=== PATIENT | female | born 1950 | race Caucasian/White ===

== ENCOUNTER 2016-10-04 11:33 | Emergency (ER) | payer OTHER ==
--- NOTE | 2016-10-04 13:21 | DX ---
Portable Chest, Single View 12:56 PM Indication: Chest pain Comparison: Two-view chest dated November 09, 2013 Findings: Lungs are well aerated except for minimal linear bibasilar atelectasis. No pneumothorax, ai rspace consolidation, edema or effusion. Heart size upper normal limit for portable technique. Mild d iffuse peribronchial thickening is similar to October 2013. Impression: Minimal bibasilar atelectasis and chronic airways disease.
--- NOTE | 2016-10-04 13:22 | CPEKG ---
Heart Rate: 57 RR Interval: 1053 P-R Interval: 164 QRSD Interval: 86 QT Interval: 400 QTC Interval: 390 P [place]: -3 QRS [place]: 4 T Wave [place]: 9 EKG Severity - ABNORMAL ECG - EKG Impression: SINUS RHYTHM EKG Impression: NONSPECIFIC T ABNORMALITIES, ANTERIOR LEADS Electronically Signed By: Lloyd Espinosa 04-Oct-2016 21:12:02
[2016-10-04 13:24] LABS: COLOR AMBER; LEUKOCYTE ESTERASE,URINE NEGATIVE (NEGATIVE); NITRITE,URINE NEGATIVE (NEGATIVE)
[2016-10-04 13:39] LABS: MUCUS 4+ /lpf (NONE-1+); RBC,URINE 50-182 /hpf (0-3)
--- NOTE | 2016-10-04 13:45 | EDPHY ---
H & P Time Seen by Provider: 10/04/16 13:01 HPI/ROS: HPI Pain and shortness of breath after nephrostomy tube removal. 66-year-old female who was escorted to the emergency department by her urologist. This patient has a history of a right-sided 4 mm ureteral calculi diagnosis last week. She had associated hydronephrosis. She subsequently had lithotripsy and had a nephrostomy tube placed. The nephrostomy tube was removed by her urologist, Dr. Lyman, in the office today about an hour to ago. Right after removal of the tube she had an intense pain in her right flank area and right mid abdominal area. She reports that with this pain she had associated shortness of breath. Her daughter gave her some Advil. She was then escorted to the emergency department by Dr. Lyman for ED evaluation. She reports that after taking the Advil given to her by her daughter she now feels much better. She denies any significant pain. She denies any shortness of breath. ROS: Constitutional: No fever, no chills. No weakness. Eyes: No discharge. No changes in vision. ENT: No sore throat. No nasal congestion or rhinorrhea. Respiratory: No cough. As above. Cardiac: No chest pain, no palpitations. Gastrointestinal: As above, no vomiting, no diarrhea. Genitourinary: No hematuria. No dysuria or increased frequency with urination. Musculoskeletal: As above. No neck pain. No myalgias or arthralgias. Skin: No rashes. Neurological: No headache. No focal weakness or altered sensation. Past medical history: Fibromyalgia, hypothyroid, diverticulitis, kidney stones , as above, bariatric surgery, attention deficit hyperactivity disorder,, recovering alcoholic for 32 years, history of pulmonary embolisms while on control pills when she was younger. She is not on any anticoagulation currently. Social history: Here with her daughter. Nonsmoker. As above. Physical Exam: General Appearance: Alert, no distress. This patient is responding to questions appropriately and in full sentences. This patient appears well- hydrated and well-nourished. Eyes: Pupils equal and round no pallor or injection. No lid edema, erythema or injection. Respiratory: There are no retractions, lungs are clear to auscultation with good air movement bilaterally. No tachypnea. Cardiovascular: Regular rate and rhythm. No murmur. Gastrointestinal: Abdomen is soft and nontender, no masses, bowel sounds normal. No focal tenderness at McBurney's point. No Pandey sign. Neurological: Motor sensory function is grossly intact. Cranial nerves are normal. Gait is normal. Skin: Warm and dry, no rashes. Right-sided flank insertion site of nephrostomy to is clean dry and intact. No evidence of infection, inflammation. No bleeding. Musculoskeletal: Neck is supple and nontender. Extremities are symmetrical. All joints range without pain or impingement. Psychiatric: No agitation. No depression. Database: EKG: EKG time is 1:26 p.m.; EKG shows a narrow complex normal sinus rhythm with a ventricular rate of 57. The NH, QRS, QT intervals are within normal limits. T- wave inversions noted in V2 and V3 as well as lead 3. No evidence of right heart strain. Interpreted by me. Imaging: Procedures: Emergency department course: After my evaluation of the patient as stated above her vital signs reviewed and are normal. No tachypnea. She is afebrile. Pulse oximetry on room air has been 94-95%. She denies any pain at this time. No chest discomfort. No shortness of breath. I discussed working her up further. She is declining this and her daughter is in agreement. I feel this is reasonable. I feel that her shortness of breath was associated with her acute and transient pain after the nephrostomy tube was removed. Her presentation is not consistent with acute coronary syndrome, pulmonary embolism or congestive heart failure. I also feel that infectious etiology, or bleeding complication from removal of her nephrostomy tube is unlikely. She lives near the emergency department and can easily return if needed. Follow-up was discussed. All of their questions were answered. She was discharged in good condition. She reports that she has oxycodone at home. She has been cleared to use ibuprofen by her urologist Dr. Jason Lyman. 2:00 p.m., Dr. Jason Lyman informed the patient will be discharged. He will follow up with her accordingly. Differential Diagnosis: The differential diagnosis on this patient includes but is not limited to transient right flank pain after nephrostomy tube removal, transient dyspnea associated with prior. Pulmonary embolism, acute coronary syndrome, significant postprocedural/surgical complication, serious bacterial infection unlikely. This represents a partial list of diagnoses considered. These considerations are based on history, physical exam, past history, reassessment and diagnostic testing. Smoking Status: Former smoker Constitutional: Initial Vital Signs Temperature (C) 36.4 C 10/04/16 11:38 Heart Rate 61 10/04/16 11:38 Respiratory Rate 18 10/04/16 11:38 Blood Pressure 99/70 L 10/04/16 11:38 O2 Sat (%) 94 10/04/16 11:38 O2 Delivery Mode Room Air Allergies/Adverse Reactions: meperidine HCl [From Demerol] Allergy (Verified 10/04/16 11:37) metronidazole [From Flagyl] Allergy (Verified 10/04/16 11:37) Metronidazole HCl [From Flagyl] Allergy (Verified 10/04/16 11:37) tetracycline [Tetracycline] Allergy (Verified 10/04/16 11:37) "opiates" Allergy (Uncoded 11/08/13 15:31) Home Medications: Medication Instructions Recorded Ditropan 10/04/16 Synthroid 10/04/16 Medical Decision Making - Data Points Laboratory Results: Laboratory Results 10/04/16 13:10 10/04/16 10/04/16 13:10 12:38 Sodium 142 mEq/L (134-144) Potassium 4.3 mEq/L (3.5-5.2) Chloride 110 mEq/L (97-110) Carbon Dioxide 23 mEq/l (22-31) Anion Gap 9 mEq/L (8-16) BUN 20 mg/dL (7-23) Creatinine 0.6 mg/dL (0.6-1.0) Estimated GFR > 60 Glucose 92 mg/dL (70-100) Calcium 9.2 mg/dL (8.5-10.4) Troponin I Pending Urine Color CASIE Urine Appearance MODERATELY TURBID Urine pH 5.0 (5.0-7.5) Ur Specific [place] 1.025 (1.002-1.030) Urine Protein 1+ H (NEGATIVE) Urine Ketones TRACE H (NEGATIVE) Urine Blood NEGATIVE (NEGATIVE) Urine Nitrate NEGATIVE (NEGATIVE) Urine Bilirubin NEGATIVE (NEGATIVE) Urine Urobilinogen NEGATIVE EU (0.2-1.0) Ur Leukocyte Esterase NEGATIVE (NEGATIVE) Urine RBC 50-182 H /hpf (0-3) Urine WBC 3-5 H /hpf (0-3) Ur Epithelial Cells TRACE /lpf (NONE-1+) Hyaline Casts 1-5 /lpf (0-1) Urine Mucus 4+ H /lpf (NONE-1+) Urine Glucose 1+ H (NEGATIVE) Departure - Departure Disposition: Home, Routine, Self-Care Clinical Impression: Transient dyspnea, Nephrostomy tube removal, Status post laser lithotripsy of ureteral calculus Condition: Good Instructions: Dyspnea (ED), Kidney Stones (ED) Additional Instructions: Read and follow provided instructions. Follow-up with your urologist, Dr. Lyman, on Friday for re-evaluation as needed. Take medication as prescribed. [place]/Percocet dosin-2 every 4-[address] not drive on this medication. Ibuprofen dosin mg every 6 hours with meals for the next 3 days only. Return to the emergency department immediately for worsening pain, fever, shortness of breath or other serious concerns. Referrals: Jason Lyman MD [Medical Doctor] - As per Instructions
[2016-10-04 13:50] LABS: ANION GAP 9 mEq/L (8-16); CALCIUM 9.2 mg/dL (8.5-10.4); CARBON DIOXIDE 23 mEq/l (22-31); CHLORIDE 110 mEq/L (97-110); CREATININE 0.6 mg/dL (0.6-1.0); GLOMERULAR FILTRATION RATE > 60; GLUCOSE 92 mg/dL (70-100); POTASSIUM 4.3 mEq/L (3.5-5.2); SODIUM 142 mEq/L (134-144)
[2016-10-04 14:01] LABS: TROPONIN I < 0.012 ng/mL (0-0.034)
[2016-10-04 14:13] LABS: % IMMATURE GRANULYOCYTES 0.9 % (0.0-1.1); ABSOLUTE IMMATURE GRANULOCYTES 0.04 10^3/uL (0.00-0.10); ADD DIFF? NO; ADD MORPH? NO; ADD SCAN? NO; ATYPICAL LYMPHOCYTE FLAG 0 (0-99); FRAGMENT RBC FLAG 0 (0-99); HEMATOCRIT 41.9 % (38.0-47.0); HEMOGLOBIN 14.4 g/dL (12.6-16.3); LEFT SHIFT FLG 0 (0-99); LIPEMIA HEMOLYSIS FLAG 90 (0-99); MEAN CELL HEMOGLOBIN 31.6 pg (27.9-34.1); MEAN CELL HEMOGLOBIN CONCENTR. 34.4 g/dL (32.4-36.7); MEAN CELL VOLUME 91.9 fL (81.5-99.8); MEAN PLATELET VOLUME 8.9 fL (8.7-11.7); PLATELET CLUMPS FLAG 10 (0-99); PLATELET COUNT 249 10^3/uL (150-400); RED BLOOD CELL COUNT 4.56 10^6/uL (4.18-5.33); RED CELL DISTRIBUTION WIDTH 13.2 % (11.5-15.2)
[2016-10-04 14:16] VITALS: BP 105/65; PULSE 71; RESP 16; TEMP 98; O2SAT 93
== END 2016-10-04 14:16 | disposition home or self-care (01) ==
DX: R06.00 Dyspnea, unspecified (principal); Z93.6 Other artificial openings of urinary tract status; Z87.891 Personal history of nicotine dependence

== ENCOUNTER → 2017-06-04 | Outpatient (CLI) | payer OTHER | LOC: BHFA 13:30 | PROVIDERS: ATTEND Internal Medicine Cardiovascular Disease | DX: R07.9 Chest pain, unspecified (principal); R06.02 Shortness of breath; R00.2 Palpitations | CPT/HCPCS: 78452; 93017; A9500 ==

== ENCOUNTER → 2017-07-21 | Outpatient (CLI) | payer OTHER | LOC: BHCLAF 13:15 | PROVIDERS: ATTEND Internal Medicine Cardiovascular Disease | DX: I48.91 Unspecified atrial fibrillation (principal); R00.2 Palpitations | CPT/HCPCS: 93306-PO ==

== ENCOUNTER 2017-09-25 08:38 | Day surgery (SDC) | payer OTHER ==
[2017-09-25] MEDS ORDERED: diphenhydrAMINE 25 MG CAP PO ONE ×2 (08:51→09:23)
[2017-09-25] MEDS ORDERED: ASPIRIN EC 325 MG TAB PO ONE ×2 (08:51→09:24)
[2017-09-25] MEDS ORDERED: FAMOTIDINE 20 MG TAB PO ONE (08:51)
[2017-09-25] MEDS ORDERED: DIAZEPAM 5 MG TAB PO ONE (08:51)
[2017-09-25] MEDS ORDERED: NS 1,000 ML IV ONE (08:51)
--- NOTE | 2017-09-25 09:21 | CPEKG ---
Heart Rate: 62 RR Interval: 968 P-R Interval: 172 QRSD Interval: 84 QT Interval: 392 QTC Interval: 398 P [place]: 10 QRS [place]: 18 T Wave [place]: 14 EKG Severity - BORDERLINE ECG - EKG Impression: SINUS RHYTHM EKG Impression: VENTRICULAR PREMATURE COMPLEX EKG Impression: BORDERLINE T ABNORMALITIES, ANTERIOR LEADS Electronically Signed By: Geoff Figueroa 25-Sep-2017 13:09:48
--- NOTE | 2017-09-25 09:22 | PDPROPOC ---
Sedation Plan of Care Sedation Plan of Care: vital signs stable, mental status noted, patient educated of risks, benefits, alternatives, patient can tolerate sedation ASA Classification: ASA 3 Planned drugs: fentanyl, midazolam Mallampati Score: Class 3 Mallampati Reference Image: Patient passed 3-3-2 rule?: Yes
--- NOTE | 2017-09-25 09:23 | PDHPUP ---
History & Physical Update H&P update statement: This history and physical update is based on an assessment of the patient which was completed after admission or registration (within 24 hours), but prior to the surgery/procedure. H&P update: H&P reviewed & patient examined, no change in patient's condition since H&P completed
[2017-09-25] MEDS ORDERED: FAMOTIDINE 20 MG TAB ONE (09:24)
[2017-09-25] MEDS ORDERED: DIAZEPAM 5 MG TAB ONE (09:24)
[2017-09-25 09:33] LABS: PLATELET COUNT 250 10^3/uL (150-400)
[2017-09-25 09:39] LABS: INR 0.96 (0.83-1.16)
--- NOTE | 2017-09-25 09:46 | PDDXCAT ---
Diagnostic Cath Note - . Date: 09/25/17 Supervisor Assembly Room: [place] Indication: CCC Class III and IV angina on medical treatment - Procedure Access: right groin Procedure: left heart catheterization - Materials Left Heart Cath size: 6F Left Heart Cath materials: standard multipack (JL4, JR4, pigtail) - Findings-Left Heart Catheterization LM: 6mm in size. LAD: It is 3.5mm in size. BETTYE III flow. No flow limiting obstruction. LCX: LCX 3.5mm in size. BETTYE III flow. No flow limiting obstruction RCA: RCA is dominant and gives rise to the posteriolateral and posterior descending branches with BETTYE III flow. EDP: 20mmHg. LVEF: 65%. There is mild catheter induced mitral regurgitation on pressurized injection. Visualized portion of the throac aorta shows 3 Sinus of [place] most consistent with a trileaflet aortic valve. There was no evidence of aneurysm or dissection. Complications: None. Estimated blood loss: <50ml Assessment: There is no evidence of flow limiting obstruction, dissection, or thrombus in the coronary arteries. There is BETTYE III flow throughout. A cause for the patient's anginal quality chest pain is not identified on the basis of this study. The patient's current symptoms could represent Prinzmental's variant angina or syndrome X. Plan: The patient should be a good candidate for medical management. Intervention: None. Patient Problems: Problems Problem Status Onset Diverticulitis Acute
[2017-09-25] MEDS ORDERED: MIDAZOLAM 2 MG/2 ML VIAL ONE ×2 (11:00→11:28)
[2017-09-25] MEDS ORDERED: IOPAMIDOL (ISOVUE-370) 150 ML BTL IV ONE (11:00)
[2017-09-25] MEDS ORDERED: LIDOCAINE 1% 300 MG/30 ML SDV ONE (11:00)
[2017-09-25] MEDS ORDERED: fentaNYL 100 MCG/2 ML INJ ONE (11:00)
[2017-09-25] MEDS ORDERED: HYDROCODONE/APAP 5/325 TAB PO PRN (11:54)
[2017-09-25] MEDS ORDERED: NITROGLYCERIN 0.4 MG BTL SL PRN (11:54)
[2017-09-25] MEDS ORDERED: ONDANSETRON 4 MG/2 ML VIAL IVP PRN (11:54)
[2017-09-25] MEDS ORDERED: OXYCODONE/APAP 5/325 TAB PO PRN (11:54)
[2017-09-25] MEDS ORDERED: ATROPINE SULFATE 1 MG/10 ML SYR IVP PRN (11:54)
== END 2017-09-25 15:53 | disposition home or self-care (01) ==
LOC: FCATH 08:38
PROVIDERS: ATTEND Internal Medicine Cardiovascular Disease
PROC: B2111ZZ Fluoroscopy of Multiple Coronary Arteries using Low Osmolar Contrast (ICD-10-PCS; principal; 2017-09-25)
PROC: 4A023N7 Measurement of Cardiac Sampling and Pressure, Left Heart, Percutaneous Approach (ICD-10-PCS; principal; 2017-09-25)
PROC: B2151ZZ Fluoroscopy of Left Heart using Low Osmolar Contrast (ICD-10-PCS; principal; 2017-09-25)
DX: I20.9 Angina pectoris, unspecified (principal); M79.7 Fibromyalgia; I48.0 Paroxysmal atrial fibrillation; E03.9 Hypothyroidism, unspecified; I49.3 Ventricular premature depolarization; Z79.01 Long term (current) use of anticoagulants; Z79.82 Long term (current) use of aspirin; Z86.711 Personal history of pulmonary embolism; Z86.718 Personal history of other venous thrombosis and embolism
CPT/HCPCS: C1760; J1644; J2250; J3010; Q9967

== ENCOUNTER → 2017-11-24 | Outpatient (CLI) | payer OTHER | LOC: CIMAGING 17:17 | PROVIDERS: ATTEND Physician Assistant Medical | DX: R05 Cough (principal); R11.0 Nausea; R68.83 Chills (without fever) | CPT/HCPCS: 71046-PO ==

== ENCOUNTER 2018-03-07 13:15 | Observation (INO) | payer OTHER ==
--- NOTE | 2018-03-07 13:37 | CPEKG ---
Heart Rate: 75 RR Interval: 800 P-R Interval: 164 QRSD Interval: 94 QT Interval: 368 QTC Interval: 411 P [place]: -3 QRS [place]: 17 T Wave [place]: 0 EKG Severity - NORMAL ECG - EKG Impression: SINUS RHYTHM Electronically Signed By: Yaniv Bee 08-Mar-2018 09:11:18
[2018-03-07] MEDS ORDERED: NS 1,000 ML IV ONE (13:44)
--- NOTE | 2018-03-07 13:46 | EDPHY ---
HPI/HX/ROS/PE/MDM - Data Points Imaging: Discussed imaging studies w/ call specialist Radiologist Narrative: CHIEF COMPLAINT: Abdominal pain HPI: The patient is a 67-year-old female with multiple medical problems including history of diverticulitis status post partial colectomy, history of bariatric surgery, kidney stones, reflux. She complains of left lower quadrant severe abdominal pain that has been present for the last several days. This is accompanied by nausea, vomiting and many episodes of watery diarrhea. She also reports frequent urination. She denies fever. She states this feels similar to previous episodes of diverticulitis. No recent antibiotics. REVIEW OF SYSTEMS: Aside from elements discussed in the HPI, a comprehensive 10-point review of systems was reviewed and is negative. PMH: Includes history of diverticulitis, atrial fibrillation, kidney stones. SOCIAL HISTORY: , denies alcohol or drug abuse. PHYSICAL EXAM: General:Patient is alert, in no acute distress. ENT:Eyes are normal to inspection. ENT inspection normal. Neck: Normal inspection. Full range of motion. Respiratory:No respiratory distress. Breath sounds normal bilaterally. Cardiovascular: Regular rate and rhythm. Strong peripheral pulses. Normal cap refill. Abdomen: Severe tenderness to palpation is present in the left lower quadrant. No peritoneal signs. Back: Normal to inspection. No tenderness to palpation. Skin: Normal color. No rash. Warm and dry. Extremities: Normal appearance. Full range of motion. Neuro: Oriented x3. Normal motor function. Normal sensory function. (Bharat Menon) MDM: 3:30 p.m. The patient's care is transferred to [place] was CT pending as well as lipase pending. We discussed the CT results. On my exam she does have some epigastric tenderness as well as right lower quadrant tenderness. Radiology suggested she needed to be scoped. I have paged GI instructional technology specialist. Patient has been scoped before but does not remember by home and I do not see it in our records. The patient reports that she has had rising LFTs over the last few months but not nearly to the degree they are today. She has a history of cholecystectomy as well as gastric bypass and partial colectomy for diverticulitis. She also had an appendectomy as a child. 3:40 p.m. I discussed the case with Dr. Gill from GI who agrees with admission and plan thus far and will consult and possibly scope. She would recommend attempt at bowel prep as well as surgical consultation. 3:50 p.m. I discussed the case with Dr. Contreras who will consult. He requests that she be transferred to the ER rather than to the floor so he can evaluate her there. 3:55 p.m. I spoke with Dr. Espinosa who will accept to the ER. I will have her make her direct admission. She would simply be waiting in the ER until her bed is ready and for Dr. Contreras to evaluate. Patient and refused ambulance transport and he will drive her over there. For p.m. I spoke with Dr. Canchola who will accept to [facility] floor. ( Aly Zuñiga) - Data Points Imaging Results: Imaging Impressions Abdomen CT 03/07/18 14:29 Impression: 1. Thickened distal ascending colon and proximal transverse colon with adjacent inflammatory changes suggesting acute colitis at this location. 2. The cecum is flipped medially compatible with bascule or early volvulus. 3. Extensive prior abdominal surgeries. Laboratory Results: 03/07/18 03/07/18 03/07/18 13:53 13:44 13:30 POC Sodium 132 mEq/L L mEq/L (135-145) POC Potassium 3.8 mEq/L mEq/L (3.3-5.0) POC Chloride 106.0 mEq/L mEq/L (97-110) POC Total CO2 29 mEq/L mEq/L (22-31) POC BUN 16 mg/dL mg/dL (7-23) POC Creatinine 0.8 mg/dL mg/dL (0.6-1.0) POC Glucose 109 mg/dL H mg/dL (70-100) POC Calcium 9.3 mg/dL mg/dL (8.5-10.4) POC Total Bilirubin 1.1 mg/dL mg/dL (0.1-1.4) Total Bilirubin 1.0 mg/dL mg/dL (0.1-1.4) Conjugated Bilirubin 0.1 mg/dL mg/dL (0.0-0.5) Unconjugated Bilirubin 0.9 mg/dL mg/dL (0.0-1.1) POC AST 460 IU/L H IU/L (14-46) AST 564 IU/L H IU/L (14-46) POC ALT 651 IU/L H IU/L (9-52) ALT 749 IU/L H IU/L (9-52) POC Alk Phosphatase 199 IU/L H IU/L (38-126) Alkaline Phosphatase 232 IU/L H IU/L (38-126) POC Troponin I 0.01 ng/mL ng/mL (0.00-0.08) POC Total Protein 6.4 g/dL g/dL (6.3-8.2) Total Protein 6.2 g/dL L g/dL (6.3-8.2) POC Albumin 3.0 g/dL L g/dL (3.5-5.0) Albumin 3.3 g/dL L g/dL (3.5-5.0) Lipase 40 IU/L IU/L (23-300) Medications Given: Discontinued Medications Fentanyl (Sublimaze) 50 mcg IVP EDNOW ONE Stop: 03/07/18 14:34 Last Admin: 03/07/18 14:43 Dose: 50 mcg Fentanyl (Sublimaze) 50 mcg IVP ONCE ONE Stop: 03/07/18 16:33 Last Admin: 03/07/18 16:35 Dose: 50 mcg Sodium Chloride (Ns) 1,000 mls @ 0 mls/hr IV ONCE ONE PRN Reason: Wide Open Stop: 03/07/18 13:45 Last Admin: 03/07/18 13:48 Dose: 1,000 mls Point of Care Test Results: CBC CBC Collection Date 03/07/18 CBC Collection Time 14:20 WBC 6.0 RBC 4.38 HGB 13.8 HCT 40.9 PLT 254 Neut # 4.0 Neut 68.2 LYMPH # 1.1 LYMPH 17.6 Other WBC # 0.9 Other WBC 14.2 MCV 93.4 Chemistry 03/07/18 03/07/18 13:53 13:44 POC Sodium 132 mEq/L L mEq/L (135-145) POC Potassium 3.8 mEq/L mEq/L (3.3-5.0) POC Chloride 106.0 mEq/L mEq/L (97-110) POC Total CO2 29 mEq/L mEq/L (22-31) POC BUN 16 mg/dL mg/dL (7-23) POC Creatinine 0.8 mg/dL mg/dL (0.6-1.0) POC Glucose 109 mg/dL H mg/dL (70-100) POC Calcium 9.3 mg/dL mg/dL (8.5-10.4) POC Total Bilirubin 1.1 mg/dL mg/dL (0.1-1.4) POC AST 460 IU/L H IU/L (14-46) POC ALT 651 IU/L H IU/L (9-52) POC Alk Phosphatase 199 IU/L H IU/L (38-126) POC Troponin I 0.01 ng/mL ng/mL (0.00-0.08) POC Total Protein 6.4 g/dL g/dL (6.3-8.2) POC Albumin 3.0 g/dL L g/dL (3.5-5.0) Urine Dip Collection Date 03/07/18 Collection Time 14:30 Specific [place] (1.002-1.030) 1.015 PH (5.0-7.5) 7.5 Leukocytes (Negative) Trace Nitrites (Negative) Negative Protein (Negative) 1+ Glucose (Negative) Negative Ketones (Negative) Negative Urobilnogen (0.2-1.0 EU) 0.2 Bilirubin (Negative) Negative Blood (Negative) Negative General Time Seen by Provider: 03/07/18 13:19 Initial Vital Signs: Initial Vital Signs Temperature (C) 36.4 C 03/07/18 13:21 Heart Rate 80 03/07/18 13:21 Respiratory Rate 16 03/07/18 13:21 Blood Pressure 134/77 H 03/07/18 13:21 O2 Sat (%) 95 03/07/18 13:21 O2 Delivery Mode Room Air Allergies/Adverse Reactions: meperidine HCl [From Demerol] Allergy (Verified 03/07/18 13:25) Rash metronidazole [From Flagyl] Allergy (Verified 03/07/18 13:25) Rash Metronidazole HCl [From Flagyl] Allergy (Verified 03/07/18 13:25) Rash tetracycline [Tetracycline] Allergy (Verified 03/07/18 13:25) Rash "opiates" Allergy (Uncoded 09/24/17 10:38) Vomiting Home Medications: Medication Instructions Recorded Levothyroxine [Synthroid 88 mcg 88 mcg PO DAILY 10/04/16 (*)] Apixaban [Eliquis] 5 mg PO BID 09/24/17 Aspirin [Aspirin 81mg (*)] 81 mg PO HS 09/24/17 LORazepam [Ativan (*)] 1 mg PO HS PRN 09/24/17 Naltrexone 4.5mg Tab Compounded 4.5 mg PO DAILY 09/24/17 Lutein/Zeaxanthin 1 cap PO DAILY 03/07/18 DULoxetine [Cymbalta 60 MG (*)] 60 mg PO DAILY 03/07/18 Magnesium Oxide [Magnesium Oxide 400 mg PO HS 03/07/18 400 mg (*)] Departure - Departure Disposition: [facility] Inpatient Acute Clinical Impression: Abdominal pain Qualifiers: Abdominal location: unspecified location Qualified Code(s): R10.9 - Unspecified abdominal pain Condition: Fair
[2018-03-07] MEDS ORDERED: fentaNYL 100 MCG/2 ML INJ IVP ONE ×2 (14:33→16:32)
[2018-03-07] MEDS ORDERED: IOPAMIDOL (ISOVUE-300) 100 ML BTL ONE (14:41)
[2018-03-07] MEDS ORDERED: PROMETHAZINE HCL 25 MG TAB PO PRN (16:03)
[2018-03-07] MEDS ORDERED: PROMETHAZINE HCL 25 MG/ML INJ IVP PRN (16:03)
[2018-03-07] MEDS ORDERED: HYDROmorphONE/DILAUDID 1 MG/ML INJ IVP PRN (16:03)
[2018-03-07] MEDS ORDERED: ACETAMINOPHEN 325 MG TAB PO PRN (16:03)
[2018-03-07] MEDS ORDERED: ONDANSETRON DISINTEGRATING 4 MG TAB PO PRN (16:03)
[2018-03-07] MEDS ORDERED: ONDANSETRON 4 MG/2 ML VIAL IVP PRN (16:03)
[2018-03-07] MEDS ORDERED: HYDROmorphONE/DILAUDID 2 MG TAB PO PRN (16:03)
[2018-03-07] MEDS ORDERED: NS W/ 20 KCl/L 1,000 ML IV SCH (16:15)
[2018-03-07] MEDS ORDERED: fentaNYL 100 MCG/2 ML INJ ONE (16:33)
--- NOTE | 2018-03-07 18:38 | GCON ---
[f rep st] CONSULTATION REFERRING PHYSICIAN: MD Aly Salgado MD; REASON FOR CONSULTATION: Abdominal pain and abnormal CT. HISTORY: This is a 67-year-old female who has had 1 episode of diverticulitis in the past and is status post a sigmoid colectomy for that. She has had a history of bariatric surgery 8 years ago and lost 111 pounds. She has had kidney stones treated with lithotripsy and laser. She had a cholecystectomy 20 years ago. She has reflux. She has had a parathyroidectomy. She was in her usual state of good health until Friday of this week when she developed a left lower quadrant pain. On , she had 15 episodes of watery diarrhea, and she has had watery diarrhea on both Friday and today. She has complained of urinary frequency. There is no history of travel outside the [place] or antibiotic use. No history of recent viral illness. There is no history of inflammatory bowel disease. There is a history of others at a gathering that also had diarrhea. SOCIAL HISTORY: She smoked from age 17 to 34, a peak of 4 packs per day. She does not drink alcohol at this point. ALLERGIES: She has a rash with Demerol, Flagyl, and tetracyclines. She vomits with opioids. MEDICATIONS: Include Synthroid 88 mcg on Friday, Friday, and Friday and 100 mcg on Friday, Friday, , Friday. She takes Eliquis 5 mg twice a day as well as an 81 mg aspirin. She takes milk of magnesia 400 mg a day, MiraLAX 17 g daily. She takes Norvasc 10 mg daily, and she uses torsemide. PAST MEDICAL HISTORY: There is no history of rheumatic fever, tuberculosis, hepatitis, or transfusions. REVIEW OF SYSTEMS: She had an episode of hand spasms yesterday, which resolved within 30 seconds. She carries a diagnosis of fibromyalgia. She does have atrial fibrillation. She has essential tremors and chronic fatigue. She has a hyperactive bladder. She has atrial fibrillation with right ventricular dysfunction. PHYSICAL EXAMINATION: GENERAL: She is awake and alert. HEENT: Her skull is normocephalic and atraumatic. PSYCHIATRIC: She is oriented to person, place, and time. NECK: Unremarkable. There are no carotid bruits. Thyroid is not enlarged. There are no parathyroid masses appreciated. BACK: Unremarkable. LUNGS: Clear to auscultation. CARDIAC: Shows S1 and S2 to be normal. LYMPHATIC: I do not detect any cervical, supraclavicular, axillary, or inguinal lymphadenopathy. ABDOMEN: Distended. She is tender with cough in the left lower quadrant, a 5 on a scale of 1-10. To palpation, left upper quadrant is 8; left midabdomen is 8; left lower quadrant is 9; epigastrium is 8 ; periumbilical area is 8; suprapubic area is 6; right upper quadrant is 1; right midabdomen is 2; right lower quadrant is 3. VITAL SIGNS: Show a blood pressure of 134/77, at 80. Respirations are 16. Sats are 95%. Her temperature is 36.4. LABORATORY DATA: Her lactic acid is 0.6. Her creatinine is 0.8. Her BUN is 16. Her AST is 460. Her ALT is 651, and her alkaline phosphatase is 232, all three of which are up in the last 3 weeks. Her bilirubin is 1.0. Her CT scan shows a questionable bascule or volvulus. The cecum is thickened as are the ascending and proximal transverse colon. There are inflammatory changes noted. I do not see a distinct area in the left lower quadrant to account for her discomfort. Her white blood cell count is not yet available. Her lipase is 40. IMPRESSION: I do not feel she has a surgical abdomen at this point, but she has a confusing picture of a colitis with elevated transaminases. I cannot explain the left lower quadrant issues. She has not had any antibiotics, but I think we should test her stool for Clostridium difficile along with the search for enteric pathogens. /[id number]/MODL MTDD
[2018-03-07] MEDS ORDERED: LORazepam 1 MG TAB PO PRN ×2 (18:39→22:00)
--- NOTE | 2018-03-07 18:47 | PDGENHP ---
History and Physical - Chief Complaint Acute abdominal pain - History of Present Illness Primary care provider: Dr. Moreno Primary urologist: Dr. Jason Lyman Primary television producer: Lisa Orta HPI: 67-year-old female presents with acute abdominal pain characterized as a 10/10 severe pain located diffusely throughout her abdomen but focally in the left lower quadrant with associated nausea, vomiting, watery brown diarrhea with onset of symptoms 4 to 5 days prior and duration persistent thereafter. The patient reports that approximately 1 week ago she [facility] , she did not some of the water, but 1 of the other attendees experienced 4 days of GI symptoms after swimming in the water. The patient began experiencing the aforementioned symptoms several days after that event, and her oral intake has declined, as her abdominal pain seems to be exacerbated with oral intake, most notably a protein bar consumed on the day prior to presentation. The symptoms have not been particularly alleviated by antacids or as needed Tylenol. The patient reports not abusing Tylenol, only taking several tabs. She has otherwise not changed any medications in the recent past or taken any new supplements. She denies any allergic symptoms denies any rash denies any chest pain or shortness of breath. She does note that she chronically has nocturia, for which she is being evaluated at the urology office. History Information - Allergies/Home Medication List Allergies/Adverse Reactions: meperidine HCl [From Demerol] Allergy (Verified 03/07/18 13:25) Rash metronidazole [From Flagyl] Allergy (Verified 03/07/18 13:25) Rash Metronidazole HCl [From Flagyl] Allergy (Verified 03/07/18 13:25) Rash tetracycline [Tetracycline] Allergy (Verified 03/07/18 13:25) Rash "opiates" Allergy (Uncoded 09/24/17 10:38) Vomiting Home Medications: Levothyroxine [Synthroid 88 mcg (*)] 88 mcg PO DAILY 10/04/16 [Last Taken ] Apixaban [Eliquis] 5 mg PO BID 09/24/17 [Last Taken 03/07/18] Aspirin [Aspirin 81mg (*)] 81 mg PO HS 09/24/17 [Last Taken 03/06/18] LORazepam [Ativan (*)] 1 mg PO HS PRN 09/24/17 [Last Taken 03/06/18] Naltrexone 4.5mg Tab Compounded 4.5 mg PO DAILY 09/24/17 [Last Taken 03/07/18] DULoxetine [Cymbalta 60 MG (*)] 60 mg PO DAILY 03/07/18 [Last Taken 03/07/18] Magnesium Oxide [Magnesium Oxide 400 mg (*)] 400 mg PO HS 03/07/18 [Last Taken 03/06/18] I have personally reviewed and updated: family history, medical history, social history, surgical history - Past Medical History atrial fibrillation, DVT (Remote history on OCPs), fibromyalgia Additional medical history: Hyperparathyroidism. Hypothyroidism. History of diverticulitis. History of nephrolithiasis. Mild transaminitis on 02/16/2018 without any additional workup - Surgical History Additional surgical history: Gastric bypass/bariatric surgery. Partial colectomy for diverticulitis. Cholecystectomy. Appendectomy. Hysterectomy - Family History Additional family history: No family history of venous thromboembolism - Social History Smoking Status: Former smoker Alcohol Use: Sober Drug Use: None Additional social history: Independent in ADLs Review of Systems Review of Systems: ROS: 10pt was reviewed & negative except for what was stated in HPI & below Gastrointestinal: Reports: vomitting, abdominal pain, diarrhea, nausea Genitourinary: Reports: frequency (Nocturia) Physical Exam Physical Exam: Temp Pulse Resp BP Pulse Ox 36.7 C 83 18 130/70 H 91 L 03/07/18 17:03 03/07/18 17:03 03/07/18 17:03 03/07/18 17:03 03/07/18 17:03 Constitutional: no apparent distress, appears nourished, not in pain Eyes: PERRL, anicteric sclera, EOMI Ears, Nose, Mouth, Throat: moist mucous membranes, hearing normal, ears appear normal, no oral mucosal ulcers Cardiovascular: regular rate and rhythym, no murmur, rub, or gallop, No edema Respiratory: no respiratory distress, no rales or rhonchi, clear to auscultation Gastrointestinal: normoactive bowel sounds, no palpable masses, tenderness ( Moderate to moderate palpation in left abdomen, midepigastric, mild in right upper quadrant), guarding (Voluntary), No distension Genitourinary: no bladder fullness, no bladder tenderness Skin: warm, No abrasion, No rash Neurologic: AAOx3, sensation intact bilaterally, No weakness Psychiatric: interacting appropriately, not anxious, not encephalopathic, thought process linear Lab Data & Imaging Review POC Sodium 132 mEq/L (135-145) L 03/07/18 13:53 POC Potassium 3.8 mEq/L (3.3-5.0) 03/07/18 13:53 POC Chloride 106.0 mEq/L (97-110) 03/07/18 13:53 POC Total CO2 29 mEq/L (22-31) 03/07/18 13:53 POC BUN 16 mg/dL (7-23) 03/07/18 13:53 POC Creatinine 0.8 mg/dL (0.6-1.0) 03/07/18 13:53 POC Glucose 109 mg/dL (70-100) H 03/07/18 13:53 POC Lactic Acid Fer 0.6 mmol/L (0.7-2.1) L 03/07/18 16:14 POC Calcium 9.3 mg/dL (8.5-10.4) 03/07/18 13:53 POC Total Bilirubin 1.1 mg/dL (0.1-1.4) 03/07/18 13:53 Total Bilirubin 1.0 mg/dL (0.1-1.4) 03/07/18 13:30 Conjugated Bilirubin 0.1 mg/dL (0.0-0.5) 03/07/18 13:30 Unconjugated Bilirubin 0.9 mg/dL (0.0-1.1) 03/07/18 13:30 POC AST 460 IU/L (14-46) H 03/07/18 13:53 AST 564 IU/L (14-46) H 03/07/18 13:30 POC ALT 651 IU/L (9-52) H 03/07/18 13:53 ALT 749 IU/L (9-52) H 03/07/18 13:30 POC Alk Phosphatase 199 IU/L (38-126) H 03/07/18 13:53 Alkaline Phosphatase 232 IU/L (38-126) H 03/07/18 13:30 POC Troponin I 0.01 ng/mL (0.00-0.08) 03/07/18 13:44 POC Total Protein 6.4 g/dL (6.3-8.2) 03/07/18 13:53 Total Protein 6.2 g/dL (6.3-8.2) L 03/07/18 13:30 POC Albumin 3.0 g/dL (3.5-5.0) L 03/07/18 13:53 Albumin 3.3 g/dL (3.5-5.0) L 03/07/18 13:30 Lipase 40 IU/L (23-300) 03/07/18 13:30 Visualized and Interpreted EKG results: Yes EKG Interpretation: Positive for: other (Normal sinus rhythm with T-wave inversion in V2 to V4, Q-waves in 3 and AVF) Assessment & Plan Assessment: 67-year-old female presents with acute abdominal pain most likely secondary to transverse colitis complicated by acute transaminitis Plan: 1. Acute transverse colitis. New problem this provider, further workup indicated. Based on CT imaging with thickening of the ascending and transverse colon which translates to her clinical exam findings and presenting symptoms -discussed with Dr. Spike Contreras, consultation appreciated, he does not recommend surgical intervention at this time but we did agree to check white blood cell count, and if elevated, consider providing empiric IV antibiotics given her known history of diverticuli and previous history of requiring partial colectomy -check stool panel, as I suspect that this is a viral gastroenteritis with resultant transaminitis, but the description of frequent loose stools upwards of 15 per day does sound like possible C diff colitis versus Salmonella or Shigella -treat supportively with IV fluids -treat supportively with pain medications 2. Transaminitis. Acute, severe, unclear etiology. Review of outside records including 02/16/2018 demonstrates AST 50, ALT 50, alk-phos 120, with significant elevation over the subsequent 3 weeks, potentially related to current condition if she is experiencing a viral infection -check CBC for eosinophiles -hold Tylenol -check right upper quadrant ultrasound to rule out portal vein thrombosis, rule out cirrhosis -patient endorses that she has not consumed alcohol in many years, utilizes naltrexone given history of alcoholism, liver enzyme pattern is not that of alcohol abuse 3. Atrial fibrillation. Continue home medication including Eliquis once reconciled 4. Hyponatremia. Most likely secondary to renal hypoperfusion in the setting of GI volume losses, give normal saline and repeat serum sodium level in a.m. 5. Hypothyroidism. Check TSH 6. Abnormal EKG. Reviewed outside records including cath report by Dr. Rafael Cheng from 09/25/17 indicating NO e/o CAD, normal EF 65% -no further w/u indicated unless developing chest pain symptoms Diet. NPO until ultrasound, then clears, then advance to light as tolerated Code. Full per patient, her daughter Sully is MD [facility] Prophylaxis. High risk, currently on Eliquis Disposition. Anticipated discharge is 03/08, pending further workup and stabilization of symptoms as outlined above.
[2018-03-07 19:24] LABS: PLATELET COUNT 243 10^3/uL (150-400)
[2018-03-07] MEDS ORDERED: APIXABAN 5 MG TAB PO SCH (21:00)
[2018-03-07] MEDS ORDERED: ASPIRIN 81 MG CHEWABLE TAB PO SCH (21:00)
[2018-03-07] MEDS ORDERED: MAGNESIUM OXIDE 400 MG TAB PO SCH (21:00)
[2018-03-08 04:58] LABS: PLATELET COUNT 219 10^3/uL (150-400)
[2018-03-08 07:53] VITALS: BP 111/64
[2018-03-08] MEDS ORDERED: ZEAXANTHIN PO SCH (09:00)
[2018-03-08] MEDS ORDERED: DULoxetine 60 MG CAP PO SCH (09:00)
[2018-03-08] MEDS ORDERED: LUTEIN PO SCH (09:00)
[2018-03-08] MEDS ORDERED: APIXABAN 5 MG TAB PO SCH (09:00)
[2018-03-08] MEDS ORDERED: LEVOTHYROXINE 88 MCG TAB PO SCH (09:00)
[2018-03-08] MEDS ORDERED: NALTREXONE 4.5 MG PO SCH (09:00)
--- NOTE | 2018-03-08 10:15 | PDCONSULT ---
Apparel Manager Note: Gi Consult Full note dictated Suspect viral enteritis no bleeding so ischemia less likely and doubt volvulus as passing gas and stools Elevated LFT likely assoc with acute infection rec check PT/INR to assure adequate liver function Check Hep A,B ,C OK to advance diet and d/c home if tolerates PO Consider Antibiotics if fever or does not improve Consider colon if not better. Will sign off and my office to call for GI follow up
[2018-03-08 11:09] LABS: INR 1.13 (0.83-1.16); PROTIME(PATIENT) 14.7 SEC (12.0-15.0)
--- NOTE | 2018-03-08 11:25 | GCON ---
[f rep st] CONSULTATION DATE OF CONSULTATION: 03/08/2018 CHIEF COMPLAINT: Abdominal pain. HPI: I am asked to see this patient in consultation by Dr. Canchola for chief complaint of abdominal p ain. The patient is a 67-year-old with multiple medical problems, has been followed by our practice. She had a colonoscopy done in 2016, which showed healthy surgical anastomosis, otherwise normal. P ast surgical history is also notable for gastric bypass surgery. She did have a colon resection appr oximately 6 years ago for diverticulitis. She was well until about 5 days ago when she had onset of abdominal pain. She felt in the left lower quadrant, then radiated across her abdomen associated wit h diarrhea and some nausea. However, she has had no blood in her stools. There have been no other s ick contacts. No fevers. She denies melena or vomiting. She did have some diarrheal stools last ni ght, and is passing gas. She states although the pain is still there, it is not severe and she was a ble to tolerate liquids this morning. She states this feels somewhat different from the episode of d iverticulitis she has had in the past. ALLERGIES: The patient is allergic to Demerol, Flagyl, tetracyclines, and opiates. MEDICATIONS ON ADMISSION: Include Synthroid, Eliquis, aspirin, Ativan, naloxone, Cymbalta, magnesium . PAST MEDICAL HISTORY: Notable for atrial fibrillation, history of DVT, fibromyalgia, a history of di verticulitis requiring surgery approximately 6 years ago, history of mild elevated LFTs and alcohol u se. FAMILY HISTORY: Negative for colon cancer. SOCIAL HISTORY: The patient does use alcohol, but sober now. REVIEW OF SYSTEMS: I performed a complete review of systems which is negative except for the pertine nt negatives and positives noted above in the HPI. PHYSICAL EXAM: VITAL SIGNS: She is afebrile at 36.7, BP 111/64, pulse 51. GENERAL: She is alert a nd oriented. EYES: No scleral icterus. HEENT: No oral lesions. CARDIOVASCULAR: Irregular, irreg ular. CHEST: Clear to auscultation. ABDOMEN: Obese, but soft. Some mild tenderness in the left l ower quadrant and the right lower quadrant without rebound. No masses. NEUROLOGIC: Grossly nonfoca l. SKIN: No lesions. LABORATORY DATA: White count is 3, hematocrit stable at 35. She does have elevated liver function t ests. AST yesterday was 460, today 234. ALT yesterday 651, today 486. Alkaline phosphatase yesterd ay 199, today 173. Total bilirubin is normal at 0.8. Lipase was normal. CT scan of the abdomen foster ws thickening of the distal ascending and proximal transverse colon with adjacent inflammatory change s suggesting acute colitis. 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 Ultrasound of the abdomen right upper quadrant shows no evidence of pulmonary ve in thrombosis. She is status post cholecystectomy with mildly dilated CBD. ASSESSMENT: 1. Abdominal pain. 2. Diarrhea. 3. Elevated liver function tests. Suspect patient has likely enteritis, most likely viral. Differential diagnosis would include ischem ic colitis, but this seems much less likely as patient is not having bleeding. Also consider volvulu s based on the CT scan. I think that is unlikely. I think her cecum is in a different position ivan use of prior surgeries and clinically no evidence of volvulus as she is passing gas and stools. At t his point, I do not see a need for urgent endoscopy as she is not having bleeding and the pain is tahir ewhat better. Suspect that this will improve with time. Does have significant elevated LFTs from [facility]. This also likely part of acute viral infection, but consider other viral hepatitis. PLAN: 1. Will check a PT/INR to assess for adequate liver function which may be slightly affected by her E liquis, but we will monitor. 2. Check hepatitis A, B, and C. 3. Okay to advance her diet. 4. Could consider empiric antibiotics if she should develop fever or if her symptoms do not improve. Likewise, could consider colonoscopy if she does not improve or she develops bleeding. Thank you for this consult. /[id number]/MODL
--- NOTE | 2018-03-08 23:47 | PDDCSUM ---
Discharge Summary Discharge Summary: Admission date: 03/07/18 Discharge date: 03/08/18 Admission for Observation diagnoses: Acute transverse colitis Transaminitis AF on chronic AC Hyponatremia Hypothyroidism Abnl EKG Discharge diagnoses: Acute gastroenteritis/colitis, improved Transaminitis, improved AF on chronic AC Hypothyroidism Hyponatremia, resolved Consultants: General Surgery - Dr. Contreras. GI - Dr. Gill. Hospital Course: The patient is a 67yo F who presented to the ED with severe abdominal pain, nausea, vomiting, and watery diarrhea after about 4-5 days. She was given IV fluids and antiemetics. The next day her overall condition had improved and the patient was tolerating oral liquids and food. General surgery and GI were consulted because the CT abd/pelvis reported a flipped cecum. The surgeon saw her on admission for observation and said she did not have an acute abdomen. The GI specialist saw her the next morning, when the patient was feeling better , and did not feel the patient needed a colonoscopy urgently. Since the patient was improving, she wanted to go home and continue recovering there. She was discharged to home and planned to follow up with her PCP. Tests: AST, ALT on admission: 460, 651. AST, ALT on discharge: 234, 486. Fecal GI Pathogen panel: negative for common organisms causing diarrhea. Abd US: no portal vein thrombosis. Bile duct upper limit of normal in size. Gall bladder absent. CT Abd/pelvis: evidence of prior abdominal surgeries. Flipped cecum. Thickened distal ascending colon and proximal transverse colon with adjacent inflammatory changes suggesting acute colitis. Viral hepatitis panel - negative for Hep A, B, C. PT/INR - normal. Condition: Fair. Medications: see med rec. No new meds. Follow up/Special instructions: Activity as tolerated. Advance diet as tolerated. Continue to stay well hydrated - include electrolyte intake. Follow up with GI in 1-2 weeks. Follow up with PCP within 1 week. Return to hospital if symptoms worsen or become severe.
[2018-03-09 03:51] LABS: HEPATITIS B SURFACE ANTIGEN NEGATIVE (NEGATIVE); HEPATITIS C ANTIBODY TOTAL NEGATIVE (NEGATIVE)
[2018-03-09 04:51] LABS: HEPATITIS A ANTIBODY TOTAL NEGATIVE (NEGATIVE)
== END 2018-03-08 14:07 | disposition home or self-care (01) ==
LOC: CED 13:15 → CEDHOLD 16:01 → F3E 18:01
PROVIDERS: ADMIT Internal Medicine; ATTEND Internal Medicine
DX: K52.9 Noninfective gastroenteritis and colitis, unspecified (principal); R74.0 Nonspecific elevation of levels of transaminase and lactic acid dehydrogenase [LDH]; E87.1 Hypo-osmolality and hyponatremia; I48.91 Unspecified atrial fibrillation; R94.31 Abnormal electrocardiogram [ECG] [EKG]; E03.9 Hypothyroidism, unspecified; M79.7 Fibromyalgia; G25.0 Essential tremor; R53.82 Chronic fatigue, unspecified; Z79.01 Long term (current) use of anticoagulants; Z79.82 Long term (current) use of aspirin; Z87.442 Personal history of urinary calculi; Z87.19 Personal history of other diseases of the digestive system; Z86.718 Personal history of other venous thrombosis and embolism; Z87.891 Personal history of nicotine dependence; Z90.49 Acquired absence of other specified parts of digestive tract; Z90.711 Acquired absence of uterus with remaining cervical stump; Z98.84 Bariatric surgery status
CPT/HCPCS: 74177; 76705; 93005; G0378; J3010; Q9967; 80053-PO; 80076-PO; 83605-PO; 84484-PO; 86708-90; 96374; G0472

== ENCOUNTER → 2018-07-08 | Outpatient (CLI) | payer OTHER ==
[~2018-07-08] MED LIST: IOPAMIDOL (ISOVUE-300) 100 ML BTL ONE
== END ==
LOC: CIMAGING 14:00
PROVIDERS: ATTEND Physician Assistant
DX: R10.9 Unspecified abdominal pain (principal)
CPT/HCPCS: 74177; Q9967

== ENCOUNTER 2018-07-30 11:01 | Outpatient (CLI) | payer OTHER ==
[2018-07-30] MEDS ORDERED: fentaNYL 100 MCG/2 ML INJ IVP PRN ×2 (11:19→12:20)
[2018-07-30] MEDS ORDERED: FLUMAZENIL 0.5 MG/5 ML MDV IVP PRN ×2 (11:19→12:20)
[2018-07-30] MEDS ORDERED: MIDAZOLAM 2 MG/2 ML VIAL IVP PRN ×2 (11:19→12:20)
[2018-07-30] MEDS ORDERED: NALOXONE HCL 0.4 MG/ML INJ IVP PRN ×2 (11:19→12:20)
[2018-07-30] MEDS ORDERED: ONDANSETRON 4 MG/2 ML VIAL IVP ONE (11:19)
[2018-07-30] MEDS ORDERED: NS 1,000 ML IV SCH ×2 (11:30→12:30)
--- NOTE | 2018-07-30 12:19 | PDGENHP ---
History & Physical Chief Complaint: MRI spine...claustrophobia Cardiorespiratory Assessment: IRRR, clear lungs
--- NOTE | 2018-07-30 12:20 | PDPROPOC ---
Sedation Plan of Care Sedation Plan of Care: vital signs stable, mental status noted, patient educated of risks, benefits, alternatives, patient can tolerate sedation ASA Classification: ASA 2 Planned drugs: fentanyl, midazolam Mallampati Score: Class 2 Mallampati Reference Image: Patient passed 3-3-2 rule?: Yes
[2018-07-30 15:08] VITALS: BP 115/62
[2018-07-30] MEDS ORDERED: ONDANSETRON 4 MG/2 ML VIAL IVP PRN (15:14)
[2018-07-30] MEDS ORDERED: ACETAMINOPHEN 325 MG TAB PO PRN (15:14)
== END 2018-07-30 15:04 | disposition home or self-care (01) ==
LOC: FIMAGING 11:01
PROVIDERS: ATTEND Psychiatry & Neurology Neurology
DX: M50.30 Other cervical disc degeneration, unspecified cervical region (principal); M51.36 Other intervertebral disc degeneration, lumbar region; M51.37 Other intervertebral disc degeneration, lumbosacral region; M12.88 Other specific arthropathies, not elsewhere classified, other specified site; M99.73 Connective tissue and disc stenosis of intervertebral foramina of lumbar region
CPT/HCPCS: 72141; 72148; 99152; 99153; J2250; J3010; J2310

== ENCOUNTER → 2018-08-26 | Outpatient (CLI) | payer OTHER | END | disposition home or self-care (01) | LOC: CIMAGING 10:13 | PROVIDERS: ATTEND Physician Assistant Medical | DX: Z12.31 Encounter for screening mammogram for malignant neoplasm of breast (principal) ==

== ENCOUNTER → 2018-12-24 | Outpatient (CLI) | payer OTHER | LOC: FIMAGING 12:10 | PROVIDERS: ATTEND Physician Assistant | DX: R06.00 Dyspnea, unspecified (principal); R53.83 Other fatigue; R68.83 Chills (without fever) ==

== ENCOUNTER → 2018-12-25 | Outpatient (CLI) | payer OTHER | LOC: BHFA 11:30 | PROVIDERS: ATTEND Internal Medicine Cardiovascular Disease | DX: R00.2 Palpitations (principal); I49.3 Ventricular premature depolarization; R53.83 Other fatigue ==

== ENCOUNTER → 2018-12-28 | Outpatient (CLI) | payer OTHER | LOC: BHFA 09:00 | PROVIDERS: ATTEND Internal Medicine Interventional Cardiology | DX: I49.3 Ventricular premature depolarization (principal); I48.91 Unspecified atrial fibrillation ==

== ENCOUNTER → 2019-02-10 | Outpatient (CLI) | payer OTHER | LOC: CIMAGING 15:14 ==